=== PATIENT | female | born 1990 | race Caucasian/White ===

== ENCOUNTER 2020-06-04 13:15 | Emergency (ER) | payer OTHER | END 2020-06-04 15:42 | disposition left against medical advice (07) | LOC: ER1 13:15 | DX: Z53.21 Procedure and treatment not carried out due to patient leaving prior to being seen by health care provider (principal) ==

== ENCOUNTER 2020-09-29 18:19 | Emergency (ER) | payer OTHER ==
[2020-09-29 19:44] LABS: HEMOGLOBIN 13.6 gm/dl (12.3-15.3); RED BLOOD COUNT 4.58 M/UL (4.00-5.10); WHITE BLOOD COUNT 11.5 K/UL (4.5-11.0)
[2020-09-29 19:56] LABS: BUN/CREATININE RATIO 13 (0-10)
[2020-09-30] MEDS ORDERED: OMNICEF 300 MG300 MG PO ×3 (07:32→07:34)
[2020-10-02 16:32] LABS: ACINETOBACTER BAUMANNII Not Detected (Negative); CANDIDA ALBICANS Not Detected (Negative); CANDIDA KRUSEI Not Detected (Negative); CANDIDA TROPICALIS Not Detected (Negative); ENTEROCOCCUS Not Detected (Negative); ESCHERICHIA COLI Not Detected (Negative); HAEMOPHILUS INFLUENZAE Not Detected (Negative); KLEBSIELLA OXYTOCA Not Detected (Negative); KLEBSIELLA PNEUMONIAE Not Detected (Negative); KPC-CARBAPENEM-RESISTANCE GENE Not Detected (Negative); PROTEUS Not Detected (Negative); PSEUDOMONAS AERUGINOSA Not Detected (Negative); SERRATIA MARCESANS Not Detected (Negative); STAPHYLOCOCCUS Not Detected (Negative); STAPHYLOCOCCUS AUREUS Not Detected (Negative); STREP AGALACTIAE (GROUP B) Not Detected (Negative); STREP PYOGENES (GROUP A) Not Detected (Negative); STREPTOCOCCUS Not Detected (Negative); mecA (METHICILLIN RESIST GENE Not Detected (Negative); vanA/B (VANCOMYCIN RESIST GENE Not Detected (Negative)
== END 2020-09-30 18:55 | disposition short-term general hospital (02) ==
LOC: ER1 18:19
PROVIDERS: Physician Assistant
DX: T42.4X2A Poisoning by benzodiazepines, intentional self-harm, initial encounter (principal); F17.210 Nicotine dependence, cigarettes, uncomplicated; Z20.822 Contact with and (suspected) exposure to COVID-19; Z88.8 Allergy status to other drugs, medicaments and biological substances; Z79.82 Long term (current) use of aspirin
CPT/HCPCS: 0240U; 36600; 70450; 71045; 80053; 80307; 81001; 82550; 82553; 82803; 83605; 83735; 83880; 84100; 84484; 84703; 85025; 85610; 85652; 85730; 86140; 87040; 87077; 87086; 87150; 87186; 96374; 99285; G0480; J0696

== ENCOUNTER 2020-10-03 00:22 | Emergency (ER) | payer OTHER ==
[~2020-10-03 00:22] MED LIST: OMNICEF 300 MG300 MG PO
[2020-10-03 03:14] LABS: RED BLOOD COUNT 4.38 M/UL (4.00-5.10); WHITE BLOOD COUNT 11.5 K/UL (4.5-11.0)
[2020-10-03 03:39] LABS: BUN/CREATININE RATIO 22 (0-10)
[2020-10-03] MEDS ORDERED: VIBRAMYCIN100 MG PO (05:02)
[2020-10-03] MEDS ORDERED: OMNICEF 300 MG300 MG PO (05:02)
== END 2020-10-03 05:40 | disposition left against medical advice (07) ==
LOC: ER1 00:22
PROVIDERS: Emergency Medicine
DX: R82.71 Bacteriuria (principal); F17.210 Nicotine dependence, cigarettes, uncomplicated; Z20.822 Contact with and (suspected) exposure to COVID-19
CPT/HCPCS: 71045; 80053; 80307; 81001; 82550; 82553; 83605; 83690; 83735; 83874; 84484; 84703; 85025; 85652; 86140; 87040; 93005; 96374; 99284; J0696; U0002

== ENCOUNTER 2021-06-07 20:26 | Emergency (ER) | payer OTHER ==
[~2021-06-07 20:26] MED LIST changes: +VIBRAMYCIN100 MG PO
[2021-06-07 22:04] LABS: HEMOGLOBIN 14.2 gm/dl (12.3-15.3); RED BLOOD COUNT 4.9 M/UL (4.00-5.10); WHITE BLOOD COUNT 11.3 K/UL (4.5-11.0)
[2021-06-07 22:39] LABS: BUN/CREATININE RATIO 13 (0-10)
== END 2021-06-07 23:40 | disposition left against medical advice (07) ==
LOC: ER1 20:26
PROVIDERS: Physician Assistant
DX: F41.9 Anxiety disorder, unspecified (principal); F17.200 Nicotine dependence, unspecified, uncomplicated
CPT/HCPCS: 80053; 84703; 85025; 99283; G0480

== ENCOUNTER 2021-10-09 10:19 | Emergency (ER) | payer OTHER ==
[2021-10-09 10:43] LABS: HEMOGLOBIN 14.9 gm/dl (12.3-15.3); RED BLOOD COUNT 4.98 M/UL (4.00-5.10)
[2021-10-09 11:03] LABS: BUN/CREATININE RATIO 18 (0-10)
[2021-10-09] MEDS ORDERED: PREDNISONE20 MG PO (13:09)
== END 2021-10-09 13:14 | disposition home or self-care (01) ==
LOC: ER1 10:19
PROVIDERS: Family Medicine
DX: T78.3XXA Angioneurotic edema, initial encounter (principal); F15.90 Other stimulant use, unspecified, uncomplicated; K08.9 Disorder of teeth and supporting structures, unspecified; R21 Rash and other nonspecific skin eruption; F17.200 Nicotine dependence, unspecified, uncomplicated; Z88.5 Allergy status to narcotic agent; Z88.6 Allergy status to analgesic agent; Z88.0 Allergy status to penicillin
CPT/HCPCS: 71045; 80048; 82550; 82553; 84484; 85025; 94664; 96365; 96372; 96375; 99284; J0171; J1200; J2930